=== PATIENT | male | born 1950 | race African-American/Black ===

== ENCOUNTER → 2018-08-01 | Outpatient (CLI) | payer MEDICARE, OTHER ==
[~2018-08-01] MED LIST: ASPI-482 PO; ATOR10TA60 PO; BYSTOLIC10 MG PO; LEVO150T5 PO; LISI1TAB7 PO; METF500T16 PO; OMEG1CAP43 PO; UBID300C PO
--- NOTE | 2018-08-02 19:53 | SLEEP ---
DATE OF STUDY: 08/01/2018 ATTENDING PHYSICIAN: Dr. Chaidez. The patient is a 68-year-old who weighs 250 pounds with a BMI of 38. The patient's [place] score was 13. The patient underwent a split night study at [facility]. The patient with a prior history of HENRY in 2007, but was unable to tolerate CPAP. During the night study, the patient spent 408 minutes in bed and slept for 296 minutes with a low sleep efficiency of 73%. Sleep latency was 14 minutes with a REM latency of 221 minutes. Overall, sleep architecture showed increased stage 1 sleep, normal stage 2 sleep, absent slow wave, and normal REM sleep. During the initial diagnostic portion of the study, the patient slept for 143 minutes. During that time, there were 64 obstructive apneas, 40 mixed apneas, 11 central apneas, and 25 hypopneas. The patient's apnea-hypopnea index was 59 per hour, supine index 73 per hour. REM sleep was not seen during the diagnostic portion. EKG monitoring revealed normal sinus rhythm, average heart rate of 69 beats per minute. No arrhythmias seen. Nocturnal oximetry study revealed an average oxygen saturation of 97% with the lowest of 86%. Only 1.5 minutes were spent in oxygen saturation of less than 90%. No significant PLM seen. The patient met the criteria for CPAP initiation. It was started at 5 cm of water and titrated up to 9 cm of water. At the final pressure, the patient slept for 68 minutes. The patient had supine as well as REM sleep. The patient's AHI was reduced to 1 per hour and oxygen saturation remained above 94%. The patient used a medium size nasal mask. IMPRESSION: 1. Severe sleep apnea-hypopnea syndrome at an AHI of 59 per hour. 2. No clinically significant PLMs. 3. No clinically significant nocturnal hypoxia. RECOMMENDATIONS: 1. CPAP at 9 cm water completely eliminated the patient's sleep apnea and should be used on a nightly basis. 2. Follow up in 4-6 weeks to assess compliance with CPAP and to document clinical improvement. 3. Weight loss is strongly advised. 4. Avoid SCRAP BURNER depressants. 5. Caution regarding driving until symptoms of sleep apnea resolve with the use of CPAP. JONNIE DURHAM MD DR: YANNICK/cyndie JOB#: [id number] / [id number] TONY Epperson MD
== END | disposition home or self-care (01) ==
LOC: RT 18:21
PROVIDERS: ATTEND Family Medicine
DX: G47.33 Obstructive sleep apnea (adult) (pediatric) (principal); E11.9 Type 2 diabetes mellitus without complications
CPT/HCPCS: 95810

== ENCOUNTER 2018-08-27 13:24 | Emergency (ER) | payer MEDICARE, OTHER ==
[~2018-08-27] VITALS: Ht 170.2 cm; Wt 113.4 kg
--- NOTE | 2018-08-27 15:02 | PHYS DOC ---
Past Medical History Past Medical History: Hypertension Adult General Chief Complaint Chief Complaint: LOWER EXTREMITY SWELLING HPI HPI Patient is a 68 year old male with history of hypertension, who presents today complaining of mild pain to the right ankle and left foot that began yesterday. Patient states yesterday he went to the ground on his knees to get her cane that was underneath the couch. Patient states when he got up he thinks he could' ve twisted his right ankle and left great toe. Patient states since then he has noted swelling on bilateral lower extremities. Patient denies any use of hormones, denies any recent hospitalizations, denies any chest pain, denies any shortness of breath, denies any recent long car travel, denies any recent surgeries. Review of Systems Review of Systems Constitutional: Denies fever or chills [] Eyes: Denies change in visual acuity, redness, or eye pain [] HENT: Denies nasal congestion or sore throat [] Respiratory: Denies cough or shortness of breath [] Cardiovascular: No additional information not addressed in HPI [] GI: Denies abdominal pain, nausea, vomiting, bloody stools or diarrhea [] : Denies dysuria or hematuria [] Musculoskeletal: Denies back pain or joint pain [] Integument: Denies rash or skin lesions [] Neurologic: Denies headache, focal weakness or sensory changes [] Endocrine: Denies polyuria or polydipsia [] All other systems were reviewed and found to be within normal limits, except as documented in this note. Allergies Allergies Allergies Coded Allergies Type Severity Reaction Last Updated Verified codeine Allergy Mild N/V 10/03/14 Yes Physical Exam Physical Exam Constitutional: Well developed, well nourished, no acute distress, non-toxic appearance. [] HENT: Normocephalic, atraumatic, bilateral external ears normal, oropharynx moist, no oral exudates, nose normal. [] Eyes: PERRLA, EOMI, conjunctiva normal, no discharge. [] Neck: Normal range of motion, no tenderness, supple, no stridor. [] Cardiovascular:Heart rate regular rhythm, no murmur [] Lungs & Thorax: Bilateral breath sounds clear to auscultation [] Abdomen: Bowel sounds normal, soft, no tenderness, no masses, no pulsatile masses. [] Skin: Warm, dry, no erythema, no rash. [] Back: No tenderness, no CVA tenderness. [] Extremities: Right ankle with no obvious deformity, small amount of soft tissue swelling noted around the right ankle. Diffuse tenderness throughout to the ankle. Full range of motion to the right ankle and foot. +2 right pedal pulse. Cap refill less than 2 seconds to bilateral lower extremities, negative Homans sign bilaterally, left foot with trace edema along the left great toe. Tenderness on palpation of the toe. Full range of motion to the left foot and toes. +2 left pedal pulse. Cap refill less than 2 seconds left toes. Neurologic: Alert and oriented X 3, normal motor function, normal sensory function, no focal deficits noted. [] Psychologic: Affect normal, judgement normal, mood normal. [] Current Patient Data Vital Signs Vital Signs Date Time Temp Pulse Resp B/P (MAP) Pulse Ox O2 Delivery O2 Flow Rate FiO2 08/27/18 13:30 97.7 84 20 142/67 (92) 98 Room Air 97.7 EKG EKG [] Radiology/Procedures Radiology/Procedures []PROCEDURE: ANKLE RIGHT 3V Examination: 3 views of the right ankle and 3 views of the left foot HISTORY: History of pain in the left lobe, fall, pain in the right ankle consisting COMPARISON: None available FINDINGS: Right ankle: The alignment of the ankle joint grossly appears unremarkable. There is no acute fracture or dislocation identified. Mild soft tissue swelling identified about the ankle joint. Left foot: The alignment of the tarsal bones grossly appears unremarkable. There is no acute fracture or dislocation identified. Fragmented appearance of the os cuboid. IMPRESSION: 1. No acute osseous findings. Electronically signed by: Jadon Hernandez MD (08/27/2018 3:08 PM) [facility] DICTATED and SIGNED BY: JADON HERNANDEZ MD DATE: 08/27/18 1504 Course & Med Decision Making Course & Med Decision Making Pertinent Labs and Imaging studies reviewed. (See chart for details) This is a 68-year-old male patient presenting to the ED today with complaints of right ankle pain and left foot pain. Negative Homans sign bilaterally. PERC score is 0 Right ankle and left foot x-rays interpreted by radiologist are negative for any acute findings. Ojny wrap applied to the left foot and right ankle. Ice elevation encouraged. Follow-up with orthopedic doctor in one week. Voltaren cream Rx provided. Dragon Disclaimer Dragon Disclaimer This electronic medical record was generated, in whole or in part, using a voice recognition dictation system. Departure Departure Impression: Primary Impression: Right ankle sprain Additional Impression: Sprain of left great toe Disposition: HOME, SELF-CARE Condition: STABLE Referrals: TONY RIDDLE MD (PCP) ANA LANGSTON MD follow up in 1 week if pain continues Patient Instructions: Ankle Sprain, Foot Sprain-Brief Additional Instructions: You were evaluated in the emergency room for right ankle and left foot/great toe pain. Try to ice and elevate the affected areas, try and wear the Jony bandage provided. Use the provided cream as needed for pain. Follow-up with orthopedic doctor in one week. Scripts Diclofenac Sodium (VOLTAREN) 100 Gm Gel..gram. 1 GM TP QID, #100 GM 2 Refills Prov: DORA ELLINGTON APRN 08/27/18 Problem Qualifiers Primary Impression: Right ankle sprain Encounter type: initial encounter Involved ligament of ankle: unspecified ligament Qualified Codes: S93.401A - Sprain of unspecified ligament of right ankle, initial encounter Additional Impression: Sprain of left great toe Encounter type: initial encounter Qualified Codes: S93.502A - Unspecified sprain of left great toe, initial encounter DORA ELLINGTON UPPER LEATHER SORTER Aug 27, 2018 15:02
--- NOTE | 2018-08-27 15:12 | RAD ---
Examination: 3 views of the right ankle and 3 views of the left foot HISTORY: History of pain in the left lobe, fall, pain in the right ankle consisting COMPARISON: None available FINDINGS: Right ankle: The alignment of the ankle joint grossly appears unremarkable. There is no acute fracture or dislocation identified. Mild soft tissue swelling identified about the ankle joint. Left foot: The alignment of the tarsal bones grossly appears unremarkable. There is no acute fracture or dislocation identified. Fragmented appearance of the os cuboid. IMPRESSION: 1. No acute osseous findings. Electronically signed by: Jadon Hernandez MD (08/27/2018 3:08 PM) [facility]
[2018-08-27] MEDS ORDERED: DICL100G18 TP (15:43)
[2018-08-27 16:07] VITALS: BP 126/68
== END 2018-08-27 16:14 | disposition home or self-care (01) ==
LOC: ER 13:24
DX: S93.401A Sprain of unspecified ligament of right ankle, initial encounter (principal); S93.502A Unspecified sprain of left great toe, initial encounter; I10 Essential (primary) hypertension; Z88.5 Allergy status to narcotic agent; X50.9XXA Other and unspecified overexertion or strenuous movements or postures, initial encounter; Y93.89 Activity, other specified; Y92.89 Other specified places as the place of occurrence of the external cause; Y99.8 Other external cause status
CPT/HCPCS: 29515; 73610; 73630; 99284